=== PATIENT | male | born 1950 | race African-American/Black ===

== ENCOUNTER 2016-12-17 19:57 | Emergency (ER) | payer MEDICARE, OTHER ==
[~2016-12-17] VITALS: Ht 175.3 cm; Wt 88.5 kg
[2016-12-17] MEDS ORDERED: LIDOCAINE/EPI/TETRACAINE TOPICAL GEL 3 ML. TP ONE (20:15)
--- NOTE | 2016-12-17 20:26 | PHYS DOC ---
Adult General Chief Complaint Chief Complaint: SYNCOPE HPI HPI Patient is a 66 year old male who started experiencing a coughing fit afterwards he passed out and hit his head. Pt was in his usual state of health , he is not on blood thinners. he feels at his baseline in the ED. He did not have chest/back/neck/abdominal pain prior to passing out. he is only having pain at top of his scalp where he has a laceration that is not actively bleeding. Review of Systems Review of Systems Constitutional: Denies fever or chills [] Eyes: Denies change in visual acuity, redness, or eye pain [] HENT: Denies neck pain Respiratory: Denies cough or shortness of breath [] Cardiovascular: No chest pain GI: Denies abdominal pain, Musculoskeletal: Denies acute back pain or joint pain [] Integument: Denies rash or skin lesions [] Neurologic: Denies headache, focal weakness or sensory changes [] all other systems reviewed and found to be negative unless otherweise specified. Current Medications Current Medications Current Medications Medications (Trade) Dose Ordered Sig/Eddie Start Time Stop Time Status Last Admin Dose Admin Lidocaine/ Epinephrine (Let Topical) 3 ml 1X ONCE 12/17/16 20:15 12/17/16 20:17 DC 12/17/16 20:34 3 ML Allergies Allergies Allergies Coded Allergies Type Severity Reaction Last Updated Verified Penicillins Allergy Intermediate itchy, rash 12/17/16 Yes erythromycin base Allergy Intermediate itchy, rash 12/17/16 Yes Physical Exam Physical Exam Constitutional: Well developed, well nourished, no acute distress, non-toxic appearance. [] HENT: Normocephalic, no signs of basilar skull fracture, no palpable fracture, , oropharynx moist, no oral exudates, nose normal. [] Eyes: PERRLA, EOMI, conjunctiva normal, no discharge. [] Neck: Normal range of motion, no tenderness, supple, no stridor. No midline TTP or step offs Cardiovascular:Heart rate regular rhythm, no murmur, normal perfusion Lungs & Thorax: Bilateral breath sounds clear to auscultation, no tachypnea Abdomen: Bowel sounds normal, soft, no tenderness, no masses, no pulsatile masses. [] Skin: Warm, dry, no erythema, no rash. Laceration 6 cm lenght, linear and clean without active bleeding Back: No tenderness, no CVA tenderness. No step offs Extremities: No tenderness, ROM intact, no edema. [] Neurologic: Alert and oriented X 3, normal motor function, ambulates in the ED with normal gait and without assistance, no focal deficits noted. [] Psychologic: Affect normal, judgement normal, mood normal. [] Current Patient Data Vital Signs Vital Signs Date Time Temp Pulse Resp B/P (MAP) Pulse Ox O2 Delivery O2 Flow Rate FiO2 12/17/16 20:10 98.4 84 18 172/91 (118) 96 Room Air 98.4 Lab Values Laboratory Tests Test 12/17/16 20:25 White Blood Count 6.3 x10^3/uL (4.0-11.0) Red Blood Count 4.33 x10^6/uL (4.30-5.70) Hemoglobin 13.5 g/dL (13.0-17.5) Hematocrit 40.6 % (39.0-53.0) Mean Corpuscular Volume 94 fL (79-100) Mean Corpuscular Hemoglobin 31 pg (25-35) Mean Corpuscular Hemoglobin Concent 33 g/dL (31-37) Red Cell Distribution Width 12.5 % (11.5-14.5) Platelet Count 306 x10^3/uL (140-400) Neutrophils (%) (Auto) 52 % (31-73) Lymphocytes (%) (Auto) 37 % (24-48) Monocytes (%) (Auto) 9 % (0-9) Eosinophils (%) (Auto) 2 % (0-3) Basophils (%) (Auto) 1 % (0-3) Neutrophils # (Auto) 3.3 x10^3uL (1.8-7.7) Lymphocytes # (Auto) 2.3 x10^3/uL (1.0-4.8) Monocytes # (Auto) 0.5 x10^3/uL (0.0-1.1) Eosinophils # (Auto) 0.1 x10^3/uL (0.0-0.7) Basophils # (Auto) 0.0 x10^3/uL (0.0-0.2) Laboratory Tests 12/17/16 20:25 EKG EKG 76, SR, incomplete RBBB, no stemi[] Radiology/Procedures Radiology/Procedures CT head: no acute findings[] Course & Med Decision Making Course & Med Decision Making Indication: [] Procedure: The patient was placed in the appropriate position and anesthesia around the laceration, LET applied. The area was thencleansed with coupious irrigation. The laceration was closed with 3 lc. Total repaired wound length:6 cm Other Items: no contamination or FB present The patient tolerated the procedure well Complications:none.Pertinent Labs and Imaging studies reviewed. (See chart for details) Total time: 5 minutes [] Dragon Disclaimer Dragon Disclaimer This electronic medical record was generated, in whole or in part, using a voice recognition dictation system. Departure Departure Impression: Primary Impression: Cough Additional Impressions: Vasovagal syncope Head injury Scalp laceration Disposition: HOME, SELF-CARE Condition: IMPROVED Referrals: NON,STAFF (PCP) please follow up with your pcp in 3-5 days for recheck. [place] should be removed in 10 days Patient Instructions: Cough, Adult, Head Injury, Adult, Staple Care and Removal , Staple Wound Closure, [id number], Syncope, [id number] Scripts Benzonatate (TESSALON PERLE) 100 Mg Capsule 1 CAP PO TID, #21 CAP Prov: Val MUÑOZ MD 12/17/16 Acetaminophen With Codeine (ACETAMINOPHEN-CODEINE SOLUTION) 5 Ml Solution 5 ML PO QID for 4 Days, #100 ML Prov: Val MUÑOZ MD 12/17/16 Problem Qualifiers Val MUÑOZ MD Dec 17, 2016 20:26
--- NOTE | 2016-12-17 20:40 | RAD ---
EXAM: Head CT without contrast. HISTORY: Laceration. TECHNIQUE: Computed tomographic images of the head were obtained without contrast. *One or more of the following individualized dose reduction techniques were utilized for this examination: 1. Automated exposure control. 2. Adjustment of the mA and/or kV according to patient size. 3. Use of iterative reconstruction technique. COMPARISON: None. FINDINGS: There is no acute or subacute extra-axial or intraparenchymal hemorrhage. There is no mass effect or midline shift. There is no hydrocephalus. There are areas of decreased attenuation within the cerebral white matter, nonspecific and likely related to chronic small vessel disease. The mckeon-white matter differentiation pattern is intact. The visualized portions of the orbits, paranasal sinuses and mastoid air cells are unremarkable. No suspicious calvarial lesion is seen. IMPRESSION: No acute intracranial findings. Electronically signed by: Korin Morales MD (12/17/2016 8:36 PM) [facility]
[2016-12-17 20:45] LABS: BASO % 1 % (0-3); EOS % 2 % (0-3); HEMATOCRIT 40.6 % (39.0-53.0); HEMOGLOBIN 13.5 g/dL (13.0-17.5); LYMPH # 2.3 x10^3/uL (1.0-4.8); LYMPH % 37 % (24-48); MEAN CORPUSCULAR HEMOGLOBIN 31 pg (25-35); MEAN CORPUSCULAR HGB CONC 33 g/dL (31-37); MEAN CORPUSCULAR VOLUME 94 fL (79-100); MONO % 9 % (0-9); NEUT % 52 % (31-73); PLATELET COUNT 306 x10^3/uL (140-400); RED BLOOD COUNT 4.33 x10^6/uL (4.30-5.70); RED CELL DISTRIBUTION WIDTH 12.5 % (11.5-14.5); WHITE BLOOD COUNT 6.3 x10^3/uL (4.0-11.0)
[2016-12-17] MEDS ORDERED: BENZ100C PO (20:54)
[2016-12-17] MEDS ORDERED: ACET5SOL PO (20:54)
[2016-12-17 21:01] LABS: CALCIUM 9.4 mg/dL (8.5-10.1); CREATININE 1.3 mg/dL (0.7-1.3); GFR 66.8; POTASSIUM 4.2 mmol/L (3.5-5.1)
[2016-12-17 21:04] VITALS: BP 172/87
[2016-12-17] MEDS ORDERED: TETANUS AND DIPHTHERIA TOX/PF 0.5 ML DISP.SYRIN. VAX IM ONE (21:15)
--- NOTE | 2016-12-18 06:18 | EKG ---
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
== END 2016-12-17 21:32 | disposition home or self-care (01) ==
LOC: ER 19:57
DX: S01.01XA Laceration without foreign body of scalp, initial encounter (principal); R05 Cough; R55 Syncope and collapse; Z88.0 Allergy status to penicillin; Z88.1 Allergy status to other antibiotic agents; W22.8XXA Striking against or struck by other objects, initial encounter; Y93.89 Activity, other specified; Y99.8 Other external cause status; Y92.89 Other specified places as the place of occurrence of the external cause
CPT/HCPCS: 12002; 36415; 70450; 80048; 84484; 85025; 90471; 90714; 93005; 99285-25